=== PATIENT | male | born 1955 | race African-American/Black ===

== ENCOUNTER 2017-05-06 23:33 | Emergency (ER) | payer BC ==
[~2017-05-06] VITALS: Ht 185.4 cm; Wt 68.0 kg
[2017-05-07 04:20] VITALS: BP 129/71
== END 2017-05-07 05:45 | disposition left against medical advice (07) ==
LOC: ER 23:33
DX: R11.0 Nausea (principal); E78.00 Pure hypercholesterolemia, unspecified; I10 Essential (primary) hypertension; G89.29 Other chronic pain; Z53.21 Procedure and treatment not carried out due to patient leaving prior to being seen by health care provider